=== PATIENT | female | born 1960 | race Caucasian/White ===

== ENCOUNTER 2024-03-17 10:47 | Outpatient (CLI) | payer BC | END 2024-03-17 10:48 | disposition home or self-care (01) | LOC: CSHDTY/OP 10:47 | PROVIDERS: ATTEND Nurse Practitioner Family | DX: E66.01 Morbid (severe) obesity due to excess calories (principal); Z68.42 Body mass index [BMI] 45.0-49.9, adult | CPT/HCPCS: 97802 ==

== ENCOUNTER 2024-05-04 10:35 | Outpatient (CLI) | payer BC, MEDICARE | END 2024-05-04 10:36 | disposition home or self-care (01) | LOC: CSHDTY/OP 10:35 | PROVIDERS: ATTEND Nurse Practitioner Family | DX: Z71.3 Dietary counseling and surveillance (principal); E66.01 Morbid (severe) obesity due to excess calories; Z68.42 Body mass index [BMI] 45.0-49.9, adult | CPT/HCPCS: 97802 ==